=== PATIENT | male | born 1940 | race Caucasian/White ===

== ENCOUNTER 2018-12-05 13:05 | Inpatient (IN) | payer MEDICARE, MEDICAID ==
[~2018-12-05] VITALS: Ht 195.6 cm; Wt 101.6 kg
[~2018-12-05 13:05] MED LIST: ADV50100 IH; ALB0.5UD IH; AMIT-189 PO; AMOX-580 PO; APIX2.5T PO; ATE25T PO; CLIN300C11 PO; FURO-150 PO; FURO40TA4 PO; LISI-600 PO; OMEP-50 PO; POTA-82 PO; POTA10CA44 PO; SUCR1TAB34 PO
[2018-12-05 15:07] LABS: BASOPHILS % (AUTO) 0.6 % (0-1); EOSINOPHILS # (AUTO) 0.1 X10'3 (0-0.9); EOSINOPHILS % (AUTO) 0.9 % (0-6); HEMATOCRIT 34.5 % (42.0-52.0); HEMOGLOBIN 11.3 g/dl (14.0-17.9); LYMPHOCYTES # (AUTO) 1.1 X10'3 (1.1-4.8); LYMPHOCYTES % (AUTO) 18.7 % (21-51); MEAN CORPUSCULAR HEMOGLOBIN 30.8 PG (27.0-31.0); MEAN CORPUSCULAR HGB CONC 32.6 g/dL (33.0-36.5); MEAN CORPUSCULAR VOLUME 94.5 FL (78-98); MEAN PLATELET VOLUME 9.8 FL (7.4-10.4); MONOCYTES # (AUTO) 0.5 X10'3 (0-0.9); MONOCYTES % (AUTO) 8.3 % (2-12); NEUTROPHILS # (AUTO) 4.3 X10'3 (1.8-7.7); NEUTROPHILS % (AUTO) 71.5 % (42-75); PLATELET COUNT 209 X10'3 (140-440); RED BLOOD COUNT 3.65 X10'6 (4.70-6.10); RED CELL DISTRIBUTION WIDTH 16.2 % (11.5-14.5)
[2018-12-05 15:30] LABS: ALANINE AMINOTRANSFERASE 12 U/L (12-78); ALBUMIN 2.8 G/DL (3.4-5.0); ALBUMIN/GLOBULIN RATIO 0.7 (1.1-1.5); ALKALINE PHOSPHATASE 221 IU/L (46-116); ANION GAP 17 (8-16); ASPARTATE AMINO TRANSFERASE 21 U/L (10-37); BILIRUBIN,TOTAL 0.6 MG/DL (0.1-1.0); BLOOD UREA NITROGEN 48 MG/DL (7-18); BUN/CREATININE RATIO 12.6 (5.4-32.0); CALCIUM 9.3 MG/DL (8.5-10.1); CHLORIDE 109 MMOL/L (99-107); CREATININE 3.81 MG/DL (0.60-1.10); GLUCOSE 85 MG/DL (70-104); POTASSIUM 4.5 MMOL/L (3.5-5.1); SODIUM 144 MMOL/L (135-145); TOTAL CARBON DIOXIDE 17.7 MMOL/L (24-32); TOTAL PROTEIN 6.7 G/DL (6.4-8.2); eGFR 15 ML/MIN
[2018-12-05 15:49] LABS: CLARITY,URINE CLEAR (Clear); COLOR,URINE YELLOW (Yellow); GLUCOSE, URINE NEGATIVE (Neg); KETONES,URINE NEGATIVE (Neg); LEUKOCYTE ESTERASE ,URINE NEGATIVE (Neg); NITRITES, URINE NEGATIVE (Neg); OCCULT BLOOD,URINE MODERATE (Neg); PROTEIN,URINE NEGATIVE (Neg); UROBILINOGEN,URINE 0.2 E.U/dL (0.2-1.0)
[2018-12-05 15:50] LABS: UA COLLECTION TYPE STRAIGHT CATH
[2018-12-05 15:58] LABS: SQUAMOUS EPITHELIAL CELL,UR FEW /LPF (FEW); WBC,URINE 0-4 /HPF (0-4)
[2018-12-05 15:59] LABS: CAL OXALATE CRYSTALS FEW /HPF (NEGATIVE)
[2018-12-05 16:01] LABS: BACTERIA,URINE NONE SEEN /HPF (Neg)
[2018-12-05] MEDS ORDERED: ALBU18HF2 PO (16:39)
[2018-12-05] MEDS ORDERED: APIX5TAB3 PO (16:39)
[2018-12-05] MEDS ORDERED: NAPR220T67 PO (16:43)
[2018-12-05] MEDS ORDERED: magnesium 2GM in 50ml NS 50 ML IV PRN (17:00)
[2018-12-05] MEDS ORDERED: ondansetron/PF 4mg/2ml inj IV PRN (17:00)
[2018-12-05] MEDS ORDERED: magnesium 4gm in 100ml NS 100 ML IV PRN (17:00)
[2018-12-05] MEDS ORDERED: potassium Cl 20 mEq SR tablet PO PRN ×2 (17:00)
[2018-12-05] MEDS ORDERED: acetaminophen 325mg tablet PO PRN ×2 (17:00)
[2018-12-05] MEDS ORDERED: mag hydrox/Alum hydrox/simeth 30ml oral suspension PO PRN (17:00)
[2018-12-05] MEDS ORDERED: potassium CL 10mEq/100ml bag 100 ML IV PRN ×2 (17:00)
[2018-12-05] MEDS ORDERED: magnesium Cl slow-release 64mg tablet PO PRN (17:00)
[2018-12-05] MEDS ORDERED: magnesium hydroxide 30ml (MOM) UD suspension PO PRN (17:00)
[2018-12-05] MEDS ORDERED: normal saline 1000ML IV soln IVB ONE (17:15)
--- NOTE | 2018-12-05 17:35 | NUR ---
relieving RN for break, pt to CT
[2018-12-05 18:35] LABS: HEMOGLOBIN A1C 5.2 % (4.5-6.2)
[2018-12-05] MEDS: normal saline 1000ml 1,000 ML IV SCH (18:48)
--- NOTE | 2018-12-05 19:00 | NUR ---
ASSUMED CARE OF PT RESTING ON HIS BACK NO C/O OF DISCOMFORT . PT STATES THAT HE DOES HAVE SOME CONSTIPATION STATES HE HAS BEEN CHECKING HIS STOOL FOR BLOOD AND HAS NOT SEEN ANY, BUT DOES STRAIN TO STOOL .REPORTS HE HASNT SEEN DR Sheffield FOR 8 MONTHS MISSED HIS NOV APPT THIS YEAR. ALSO REPORTS TO HOSPITALIST THAT HE HAS DECIDED NOT TO RENEW HIS DRIVERS LICENSE WITH HIS DOUBLE VISION THAT HAS SINCE RESOLVED. PT STATES THAT THE DOUBLE VISION INDEPENDENTLY RESOLVED
--- NOTE | 2018-12-05 19:27 | NUR ---
MD Walsh CALLED FOR SIDDIQUI CATH ORDER . UPDATED POC ABOUT THE NEED TO HAVE A SIDDIQUI CATH TO HELP THE HYDRONEPHOROUS SEEN IN HIS CT
[2018-12-05] MEDS ORDERED: heparin, porcine 5000 units/ml vial SQ SCH (20:00)
[2018-12-05] MEDS: apixaban 5mg tablet PO SCH (20:21)
[2018-12-05] MEDS ORDERED: temazepam 15mg capsule PO PRN (21:00)
[2018-12-05 21:10] VITALS: BP 148/94
--- NOTE | 2018-12-05 21:10 | NUR ---
Received patient report from LUCI Nowak in ED. Patient was admitted for Acute Renal Failure (AKF) and azotemia. Pt is Full Code, RA, diet is Renal and he had a Otero in place. Pt is receiving NS at 120ml/hour for hydration. His BUN is 48 and his CR is 3.81. Per DR. Lim's notes a wrecking car driver has been consulted. Upon arrival patient VS were as follow: BP: 148/94; HR: 102; SPO2: 96; Temp: 97.1 Patient is alert and oriented X4, denies CP, dizziness, n/v, rated pain 4/10. His last bowel movement was 12/04/18. The 2RN skin was done, the malnutrition assessment, and admission assessment. Pt states that he is fatigued and would like to answer the rest of the admission questionnaires tomorrow.
[2018-12-05 22:00] VITALS: BP 150/82
[2018-12-06] MEDS: normal saline 1000ml 1,000 ML IV SCH ×4 (01:18→22:25)
[2018-12-06 02:00] VITALS: BP 122/72
[2018-12-06 05:40] LABS: BASOPHILS % (AUTO) 0.6 % (0-1); EOSINOPHILS # (AUTO) 0.1 X10'3 (0-0.9); EOSINOPHILS % (AUTO) 2.7 % (0-6); HEMATOCRIT 32.2 % (42.0-52.0); HEMOGLOBIN 10.5 g/dl (14.0-17.9); LYMPHOCYTES # (AUTO) 0.9 X10'3 (1.1-4.8); LYMPHOCYTES % (AUTO) 16.7 % (21-51); MEAN CORPUSCULAR HEMOGLOBIN 31.2 PG (27.0-31.0); MEAN CORPUSCULAR HGB CONC 32.5 g/dL (33.0-36.5); MONOCYTES # (AUTO) 0.5 X10'3 (0-0.9); MONOCYTES % (AUTO) 8.9 % (2-12); NEUTROPHILS # (AUTO) 3.8 X10'3 (1.8-7.7); NEUTROPHILS % (AUTO) 71.1 % (42-75); PLATELET COUNT 166 X10'3 (140-440); RED BLOOD COUNT 3.36 X10'6 (4.70-6.10); WHITE BLOOD COUNT 5.4 X10'3 (4.5-11.0)
[2018-12-06 06:00] VITALS: BP 128/72
--- NOTE | 2018-12-06 06:00 | NUR ---
Patient in room PCU 3019. I have received report from Blair VERMA and had the opportunity to ask questions and assume patient care.
[2018-12-06 06:02] LABS: ALANINE AMINOTRANSFERASE 11 U/L (12-78); ALBUMIN 2.3 G/DL (3.4-5.0); ALBUMIN/GLOBULIN RATIO 0.7 (1.1-1.5); ALKALINE PHOSPHATASE 190 IU/L (46-116); ANION GAP 13 (8-16); ASPARTATE AMINO TRANSFERASE 16 U/L (10-37); BILIRUBIN,TOTAL 0.4 MG/DL (0.1-1.0); BLOOD UREA NITROGEN 43 MG/DL (7-18); CALCIUM 8.9 MG/DL (8.5-10.1); CHLORIDE 112 MMOL/L (99-107); CHOL/HDL RATIO 3.5 (0.00-4.99); CHOLESTEROL 124 MG/DL (0-200); CREATININE 3.58 MG/DL (0.60-1.10); GLUCOSE 106 MG/DL (70-104); HDL CHOLESTEROL 35 MG/DL (35-60); LDL CHOLESTEROL 79 MG/DL (50-100); PHOSPHORUS 3.5 MG/DL (2.3-4.5); POTASSIUM 4.1 MMOL/L (3.5-5.1); SODIUM 144 MMOL/L (135-145); TOTAL CARBON DIOXIDE 19.5 MMOL/L (24-32); TOTAL PROTEIN 5.7 G/DL (6.4-8.2); TRIGLYCERIDES 54 MG/DL (20-135); eGFR 17 ML/MIN
--- NOTE | 2018-12-06 06:29 | NUR ---
Problems reprioritized. Patient report given, questions answered & plan of care reviewed with LUCI Ruiz. Pt stable at shift change
[2018-12-06] MEDS: K and/or MAG REPLACEMENT MC SCH (08:00)
[2018-12-06] MEDS: apixaban 5mg tablet PO SCH ×2 (09:26→19:43)
[2018-12-06 11:00] VITALS: BP 138/77
[2018-12-06 15:00] VITALS: BP 138/83
--- NOTE | 2018-12-06 15:53 | NUR ---
Malnutrition Consults: Pt admit w/ acute renal failure hx colon and prostate CA previously had received chemo/radiation. Pt seen by STUART and reports UBW 2-3 months ago 270-280 pounds, reports ~13 pound loss on malnutrition screen, and also reports 262 pounds last doctor admit in addition to current wt 207 pounds is pt stated. Both pt prior wts and states wts fluctuate w/ no accurate hx. Physical assessment currently pending as well. Pt has no visible signs of muscle/fat wasting and PO 50% avg first meals this admit. RD helped pt fill out menu and pt requests vanilla milkshake once daily which is OK on renal diet given current PO and only 125mg Phos/222mg K per shake. Dietary notified. At this time pt lacks minimum criteria for malnutrition. Will continue to monitor for additional criteria this admit. Addendum: 12/06/18 at [address] Amended: Links added.
[2018-12-06 18:00] VITALS: BP 140/87
--- NOTE | 2018-12-06 18:25 | NUR ---
Patient in room PCU 3019. I have received report from LUCI Arzate and had the opportunity to ask questions and assume patient care. Pt is resting with no sign of distress. Will continue to monitor
--- NOTE | 2018-12-06 18:35 | NUR ---
Problems reprioritized. Patient report given, questions answered & plan of care reviewed with Blair VERMA.
[2018-12-06 18:40] LABS: TOTAL PROTEIN,URINE RANDOM 109.4 MG/DL
[2018-12-06 18:59] LABS: UA EOSINOPHILS RARE EOS /HPF
[2018-12-06 22:00] VITALS: BP 125/81
[2018-12-07 02:00] VITALS: BP 136/87
[2018-12-07 06:00] VITALS: BP 134/89
[2018-12-07 06:18] LABS: BASOPHILS % (AUTO) 0.4 % (0-1); EOSINOPHILS # (AUTO) 0.2 X10'3 (0-0.9); EOSINOPHILS % (AUTO) 2.8 % (0-6); HEMATOCRIT 30.1 % (42.0-52.0); LYMPHOCYTES # (AUTO) 1.2 X10'3 (1.1-4.8); LYMPHOCYTES % (AUTO) 19.6 % (21-51); MEAN CORPUSCULAR HEMOGLOBIN 31.5 PG (27.0-31.0); MEAN CORPUSCULAR HGB CONC 33.1 g/dL (33.0-36.5); MEAN PLATELET VOLUME 9.1 FL (7.4-10.4); MONOCYTES # (AUTO) 0.6 X10'3 (0-0.9); MONOCYTES % (AUTO) 10.6 % (2-12); NEUTROPHILS # (AUTO) 3.9 X10'3 (1.8-7.7); NEUTROPHILS % (AUTO) 66.6 % (42-75); PLATELET COUNT 180 X10'3 (140-440); RED BLOOD COUNT 3.17 X10'6 (4.70-6.10); RED CELL DISTRIBUTION WIDTH 16.5 % (11.5-14.5); WHITE BLOOD COUNT 5.9 X10'3 (4.5-11.0)
--- NOTE | 2018-12-07 06:20 | NUR ---
Patient in room PCU 3019. I have received report from Blair VERMA and had the opportunity to ask questions and assume patient care.
--- NOTE | 2018-12-07 06:28 | NUR ---
Problems reprioritized. Patient report given, questions answered & plan of care reviewed with LUCI Arzate. Pt stable at shift change
[2018-12-07 06:46] LABS: ALANINE AMINOTRANSFERASE 8 U/L (12-78); ALBUMIN 2.1 G/DL (3.4-5.0); ALBUMIN/GLOBULIN RATIO 0.6 (1.1-1.5); ALKALINE PHOSPHATASE 182 IU/L (46-116); ANION GAP 10 (8-16); ASPARTATE AMINO TRANSFERASE 13 U/L (10-37); BILIRUBIN,TOTAL 0.3 MG/DL (0.1-1.0); BLOOD UREA NITROGEN 42 MG/DL (7-18); BUN/CREATININE RATIO 13.1 (5.4-32.0); CALCIUM 9.2 MG/DL (8.5-10.1); CHLORIDE 113 MMOL/L (99-107); GLUCOSE 97 MG/DL (70-104); MAGNESIUM 1.9 MG/DL (1.5-2.4); PHOSPHORUS 3.1 MG/DL (2.3-4.5); POTASSIUM 3.9 MMOL/L (3.5-5.1); SODIUM 143 MMOL/L (135-145); TOTAL CARBON DIOXIDE 19.9 MMOL/L (24-32); TOTAL PROTEIN 5.4 G/DL (6.4-8.2); eGFR 19 ML/MIN
[2018-12-07] MEDS: apixaban 5mg tablet PO SCH (07:17)
[2018-12-07] MEDS: K and/or MAG REPLACEMENT MC SCH (07:25)
[2018-12-07] MEDS: normal saline 1000ml 1,000 ML IV SCH ×3 (07:26→21:47)
[2018-12-07 11:00] VITALS: BP 143/101
--- NOTE | 2018-12-07 12:22 | NUR ---
PAGER ID: [phone] MESSAGE: [phone], Edwige Carrillo patient ran 4 beat V-Tach. [facility] [phone]
[2018-12-07 13:10] LABS: CANCER ANTIGEN 125 22.8 U/mL (Not Estab.); CARCINOEMBRYONIC ANTIGEN 1.6 ng/mL (0.0-4.7)
[2018-12-07 15:00] VITALS: BP 148/90
[2018-12-07] MEDS ORDERED: HYDROcodone/acetaminophen 10/325mg tab PO PRN (15:05)
[2018-12-07 15:08] LABS: % FREE PSA >19.9 % (.); PSA, FREE >50.00 ng/mL
[2018-12-07] MEDS: HYDROcodone/acetaminophen 10/325mg tab PO PRN (16:14)
[2018-12-07 18:00] VITALS: BP 158/85
--- NOTE | 2018-12-07 18:00 | NUR ---
Problems reprioritized. Patient report given, questions answered & plan of care reviewed with Blair VERMA.
--- NOTE | 2018-12-07 18:30 | NUR ---
Patient in room PCU 3019. I have received report from LUCI Avilez and had the opportunity to ask questions and assume patient care. Patient is having dinner right now. He is alert and oriented x 4, denies CP, SOB, n/v, and rated pain 0/10. Will continue to monitor
[2018-12-07] MEDS ORDERED: gadobutrol 10mmol/10ml inj. IV ONE (20:01)
[2018-12-07 22:00] VITALS: BP 117/81
[2018-12-08 02:00] VITALS: BP 142/93
[2018-12-08 06:00] VITALS: BP 145/87
--- NOTE | 2018-12-08 06:00 | NUR ---
Patient in room PCU 3019. I have received report from Blair VERMA and had the opportunity to ask questions and assume patient care.
--- NOTE | 2018-12-08 06:07 | NUR ---
Problems reprioritized. Patient report given, questions answered & plan of care reviewed with Raghav. Pt stable at shift change.
[2018-12-08 06:16] LABS: BASOPHILS % (AUTO) 0.4 % (0-1); EOSINOPHILS # (AUTO) 0.2 X10'3 (0-0.9); EOSINOPHILS % (AUTO) 3.1 % (0-6); HEMATOCRIT 31.4 % (42.0-52.0); HEMOGLOBIN 10.3 g/dl (14.0-17.9); LYMPHOCYTES # (AUTO) 1.2 X10'3 (1.1-4.8); LYMPHOCYTES % (AUTO) 22.9 % (21-51); MEAN CORPUSCULAR HEMOGLOBIN 31.5 PG (27.0-31.0); MEAN CORPUSCULAR HGB CONC 32.9 g/dL (33.0-36.5); MEAN CORPUSCULAR VOLUME 95.9 FL (78-98); MEAN PLATELET VOLUME 9.4 FL (7.4-10.4); MONOCYTES # (AUTO) 0.6 X10'3 (0-0.9); MONOCYTES % (AUTO) 10.4 % (2-12); NEUTROPHILS # (AUTO) 3.4 X10'3 (1.8-7.7); NEUTROPHILS % (AUTO) 63.2 % (42-75); PLATELET COUNT 173 X10'3 (140-440); RED BLOOD COUNT 3.27 X10'6 (4.70-6.10); RED CELL DISTRIBUTION WIDTH 16.8 % (11.5-14.5); WHITE BLOOD COUNT 5.5 X10'3 (4.5-11.0)
[2018-12-08 06:47] LABS: ALANINE AMINOTRANSFERASE 9 U/L (12-78); ALBUMIN 2.1 G/DL (3.4-5.0); ALBUMIN/GLOBULIN RATIO 0.6 (1.1-1.5); ALKALINE PHOSPHATASE 183 IU/L (46-116); ANION GAP 10 (8-16); ASPARTATE AMINO TRANSFERASE 10 U/L (10-37); BILIRUBIN,TOTAL 0.3 MG/DL (0.1-1.0); BLOOD UREA NITROGEN 34 MG/DL (7-18); BUN/CREATININE RATIO 10.5 (5.4-32.0); CALCIUM 8.2 MG/DL (8.5-10.1); CHLORIDE 113 MMOL/L (99-107); CREATININE 3.23 MG/DL (0.60-1.10); GLUCOSE 81 MG/DL (70-104); MAGNESIUM 1.6 MG/DL (1.5-2.4); PHOSPHORUS 3.4 MG/DL (2.3-4.5); SODIUM 142 MMOL/L (135-145); TOTAL CARBON DIOXIDE 18.6 MMOL/L (24-32); TOTAL PROTEIN 5.5 G/DL (6.4-8.2); eGFR 19 ML/MIN
[2018-12-08] MEDS: normal saline 1000ml 1,000 ML IV SCH (07:16)
[2018-12-08] MEDS: K and/or MAG REPLACEMENT MC SCH (07:16)
[2018-12-08 11:00] VITALS: BP 144/84
[2018-12-08 12:03] LABS: PARTIAL THROMBOPLASTIN TIME 47 SECONDS (22-32)
--- NOTE | 2018-12-08 13:02 | NUR ---
Nutrition consult: RD already assessed for malnutrition which pt did not qualify for, see below. PO intake has improved now averaging 75-100% likely meeting nutrient needs. Will continue to follow. 12/06- Malnutrition Consults: Pt admit w/ acute renal failure hx colon and prostate CA previously had received chemo/radiation. Pt seen by RD and reports UBW 2-3 months ago 270-280 pounds, reports ~13 pound loss on malnutrition screen, and also reports 262 pounds last doctor admit in addition to current wt 207 pounds is pt stated. Both pt prior wts and states wts fluctuate w/ no accurate hx. Physical assessment currently pending as well. Pt has no visible signs of muscle/fat wasting and PO 50% avg first meals this admit. RD helped pt fill out menu and pt requests vanilla milkshake once daily which is OK on renal diet given current PO and only 125mg Phos/222mg K per shake. Dietary notified. At this time pt lacks minimum criteria for malnutrition. Will continue to monitor for additional criteria this admit. Addendum: 12/08/18 at [address] Amended: Links added.
[2018-12-08] MEDS: HYDROcodone/acetaminophen 10/325mg tab PO PRN (14:04)
[2018-12-08 15:00] VITALS: BP 140/82
[2018-12-08 18:00] VITALS: BP 116/98
--- NOTE | 2018-12-08 18:34 | NUR ---
Patient in room PCU 3019. I have received report from LUCI Ruiz and had the opportunity to ask questions and assume patient care. Pt denies CP, SOB, dizziness, n/v. Pt's pain medication was changed from [place] to percocet. Will continue to monitor
[2018-12-08] MEDS: megestrol acetate 400mg/10ml UD oral suspension PO SCH (20:47)
[2018-12-08] MEDS: oxyCODONE/APAP 10/325mg tablet PO PRN (20:48)
[2018-12-08 22:00] VITALS: BP 142/79
[2018-12-09] MEDS: normal saline 1000ml 1,000 ML IV SCH (01:28)
[2018-12-09 06:00] VITALS: BP 144/91
--- NOTE | 2018-12-09 06:31 | NUR ---
Problems reprioritized. Patient report given, questions answered & plan of care reviewed with LUCI Domínguez. Pt stable at shift change Addendum: 12/09/18 at 0632 by Blair Servin RN Report given to LUCI Peña
[2018-12-09 06:33] LABS: BASOPHILS % (AUTO) 0.3 % (0-1); EOSINOPHILS # (AUTO) 0.2 X10'3 (0-0.9); EOSINOPHILS % (AUTO) 3.5 % (0-6); HEMATOCRIT 33.8 % (42.0-52.0); LYMPHOCYTES # (AUTO) 0.4 X10'3 (1.1-4.8); MEAN CORPUSCULAR HEMOGLOBIN 31.2 PG (27.0-31.0); MEAN CORPUSCULAR HGB CONC 32.6 g/dL (33.0-36.5); MEAN CORPUSCULAR VOLUME 95.6 FL (78-98); MEAN PLATELET VOLUME 9.1 FL (7.4-10.4); MONOCYTES # (AUTO) 0.2 X10'3 (0-0.9); MONOCYTES % (AUTO) 3.6 % (2-12); NEUTROPHILS # (AUTO) 4.4 X10'3 (1.8-7.7); NEUTROPHILS % (AUTO) 84.6 % (42-75); PLATELET COUNT 193 X10'3 (140-440); RED BLOOD COUNT 3.53 X10'6 (4.70-6.10); RED CELL DISTRIBUTION WIDTH 16.5 % (11.5-14.5); WHITE BLOOD COUNT 5.2 X10'3 (4.5-11.0)
--- NOTE | 2018-12-09 06:47 | NUR ---
Patient in room PCU 3019. I have received report from LUCI Pinto and had the opportunity to ask questions and assume patient care. Pt is awake and alert. Will continue to monitor.
[2018-12-09 06:53] LABS: ALANINE AMINOTRANSFERASE 11 U/L (12-78); ALBUMIN 2.1 G/DL (3.4-5.0); ALBUMIN/GLOBULIN RATIO 0.6 (1.1-1.5); ALKALINE PHOSPHATASE 201 IU/L (46-116); ANION GAP 11 (8-16); ASPARTATE AMINO TRANSFERASE 8 U/L (10-37); BILIRUBIN,TOTAL 0.3 MG/DL (0.1-1.0); BLOOD UREA NITROGEN 33 MG/DL (7-18); BUN/CREATININE RATIO 10.6 (5.4-32.0); CALCIUM 8.3 MG/DL (8.5-10.1); CHLORIDE 112 MMOL/L (99-107); GLUCOSE 99 MG/DL (70-104); MAGNESIUM 1.5 MG/DL (1.5-2.4); PHOSPHORUS 3.3 MG/DL (2.3-4.5); POTASSIUM 4.3 MMOL/L (3.5-5.1); SODIUM 142 MMOL/L (135-145); TOTAL CARBON DIOXIDE 19.2 MMOL/L (24-32); TOTAL PROTEIN 5.8 G/DL (6.4-8.2); eGFR 20 ML/MIN
[2018-12-09] MEDS: K and/or MAG REPLACEMENT MC SCH (07:48)
[2018-12-09] MEDS: megestrol acetate 400mg/10ml UD oral suspension PO SCH ×2 (07:48→21:02)
[2018-12-09 11:00] VITALS: BP 151/95
--- NOTE | 2018-12-09 13:00 | NUR ---
Initial: Pt admit w/ acute renal failure and recurrent prostate CA w/ mets to pelvis, lumbar, cranium, bladder, and R femoral head DX per MD note. PO 75-100% meals meeting needs on megace. LBM 12/07. Advanced to regular diet and OK to have beer at night if requests per MD order. No nutrition concerns at this time. Will continue to monitor. Rec: 1. continue regular diet per MD 2. monitor for ONS needs 3. wt per rx Addendum: 12/09/18 at [address] Amended: Links added.
[2018-12-09] MEDS: albuterol 2.5 MG/3 ML nebule NEB PRN (14:13)
[2018-12-09 15:00] VITALS: BP 141/90
--- NOTE | 2018-12-09 18:10 | NUR ---
Patient in room PCU 3019. I have received report from LUCI Peña and had the opportunity to ask questions and assume patient care.
--- NOTE | 2018-12-09 18:48 | NUR ---
Problems reprioritized. Patient report given, questions answered & plan of care reviewed with LUCI Palacios.
[2018-12-09 19:00] VITALS: BP 165/106
[2018-12-09 23:00] VITALS: BP 142/92
[2018-12-10] VITALS (9 sets, daily range): BP systolic 116–154; BP diastolic 77–105
[2018-12-10 05:56] LABS: ALANINE AMINOTRANSFERASE 10 U/L (12-78); ALBUMIN 1.9 G/DL (3.4-5.0); ALBUMIN/GLOBULIN RATIO 0.5 (1.1-1.5); ALKALINE PHOSPHATASE 187 IU/L (46-116); ANION GAP 11 (8-16); ASPARTATE AMINO TRANSFERASE 11 U/L (10-37); BILIRUBIN,TOTAL 0.4 MG/DL (0.1-1.0); BLOOD UREA NITROGEN 36 MG/DL (7-18); BUN/CREATININE RATIO 11.5 (5.4-32.0); CALCIUM 8.6 MG/DL (8.5-10.1); CHLORIDE 111 MMOL/L (99-107); CREATININE 3.13 MG/DL (0.60-1.10); GLUCOSE 91 MG/DL (70-104); MAGNESIUM 1.6 MG/DL (1.5-2.4); PHOSPHORUS 3.1 MG/DL (2.3-4.5); SODIUM 140 MMOL/L (135-145); TOTAL CARBON DIOXIDE 17.7 MMOL/L (24-32); TOTAL PROTEIN 5.5 G/DL (6.4-8.2); eGFR 19 ML/MIN
[2018-12-10 06:06] LABS: BASOPHILS % (AUTO) 0.4 % (0-1); EOSINOPHILS # (AUTO) 0.1 X10'3 (0-0.9); EOSINOPHILS % (AUTO) 2.2 % (0-6); HEMATOCRIT 30.4 % (42.0-52.0); HEMOGLOBIN 10.1 g/dl (14.0-17.9); LYMPHOCYTES # (AUTO) 0.7 X10'3 (1.1-4.8); MEAN CORPUSCULAR HEMOGLOBIN 31.2 PG (27.0-31.0); MEAN CORPUSCULAR HGB CONC 33.2 g/dL (33.0-36.5); MEAN PLATELET VOLUME 8.8 FL (7.4-10.4); MONOCYTES # (AUTO) 0.4 X10'3 (0-0.9); MONOCYTES % (AUTO) 7.2 % (2-12); NEUTROPHILS % (AUTO) 77.2 % (42-75); PLATELET COUNT 183 X10'3 (140-440); RED BLOOD COUNT 3.23 X10'6 (4.70-6.10); WHITE BLOOD COUNT 5.2 X10'3 (4.5-11.0)
--- NOTE | 2018-12-10 06:07 | NUR ---
Problems reprioritized. Patient report given, questions answered & plan of care reviewed with LUCI Peña.
--- NOTE | 2018-12-10 06:30 | NUR ---
Patient in room PCU 3019. I have received report from LUCI Palacios and had the opportunity to ask questions and assume patient care. Pt sleeping. Will continue to monitor.
[2018-12-10] MEDS: K and/or MAG REPLACEMENT MC SCH (07:54)
[2018-12-10] MEDS: normal saline 1000ml 1,000 ML IV SCH (07:54)
[2018-12-10] MEDS: megestrol acetate 400mg/10ml UD oral suspension PO SCH ×2 (07:54→19:29)
[2018-12-10] MEDS ORDERED: LIDOcaine 1%/PF 5ML 10 MG/ML VIAL SQ ONE (11:30)
[2018-12-10] MEDS ORDERED: fentaNYL/PF 50MCG/1 ML 2ML syringe IV PRN (11:30)
[2018-12-10] MEDS ORDERED: ceFAZolin 2gm in dextrose, iso 100 ML IV ONE (11:30)
[2018-12-10] MEDS ORDERED: LIDOcaine 1%/PF 5ML 10 MG/ML VIAL ONE (11:42)
[2018-12-10] MEDS ORDERED: iohexol 300 MG/1 ML 50ml polymer ONE (11:42)
[2018-12-10] MEDS ORDERED: fentaNYL/PF 50MCG/1 ML 2ML syringe ONE ×2 (11:55→12:28)
[2018-12-10] MEDS ORDERED: cefazolin/dext.iso 2gm/50ml 50 ML IV ONE (11:57)
[2018-12-10] MEDS ORDERED: diphenhydrAMINE 50 mg/ml inj ONE (11:58)
--- NOTE | 2018-12-10 18:32 | NUR ---
Problems reprioritized. Patient report given, questions answered & plan of care reviewed with LUCI Palacios.
--- NOTE | 2018-12-10 18:33 | NUR ---
Patient in room PCU 3019. I have received report from LUCI Peña and had the opportunity to ask questions and assume patient care.
[2018-12-11] VITALS (7 sets, daily range): BP systolic 114–146; BP diastolic 84–100
[2018-12-11] MEDS: normal saline 1000ml 1,000 ML IV SCH ×2 (04:15→23:28)
--- NOTE | 2018-12-11 05:34 | NUR ---
Performed bladder scan on patient due to zero urine output. He has 49 ml in his bladder. Will pass this to dayshift.
--- NOTE | 2018-12-11 06:21 | NUR ---
Problems reprioritized. Patient report given, questions answered & plan of care reviewed with LUCI Peña.
[2018-12-11] MEDS: megestrol acetate 400mg/10ml UD oral suspension PO SCH ×2 (07:13→21:45)
[2018-12-11] MEDS: K and/or MAG REPLACEMENT MC SCH (08:00)
--- NOTE | 2018-12-11 08:00 | NUR ---
Pt does not want to get up for standing scale. Bed scale is not working.
[2018-12-11] MEDS: albuterol 2.5 MG/3 ML nebule NEB PRN (12:09)
--- NOTE | 2018-12-11 12:40 | NUR ---
Sent to Dr Dumont PAGER ID: [phone] MESSAGE: RE: Kendall Carrillo [phone]. RT recommends flutter valve. Needs order. -Mariana [phone]
--- NOTE | 2018-12-11 14:08 | NUR ---
Sent to Dr Dumont PAGER ID: [phone] MESSAGE: RE: Kendall Carrillo [phone]. Pt sustaining HR of ~120's-130's for 15 minutes. Please advise. -Mariana [phone]
--- NOTE | 2018-12-11 14:22 | NUR ---
Sent to Dr Dumont PAGER ID: [phone] MESSAGE: RE: Kendall Carrillo [phone]. Upon placing order, conflict arose: pt allergic to amlodipine which is a Ca channel magdalena as well as Cardizem. Please advise. -Mariana [phone]
--- NOTE | 2018-12-11 15:19 | NUR ---
Sent to Dr Dumont PAGER ID: [phone] MESSAGE: RE: Kendall Carrillo [phone]. Pt BP down to low 100's. Still not on Cardizem drip due to amlodipine allergy. -Mariana [phone]
[2018-12-11] MEDS: oxyCODONE/APAP 10/325mg tablet PO PRN (16:16)
--- NOTE | 2018-12-11 16:20 | NUR ---
Sent to Dr Dumont PAGER ID: [phone] MESSAGE: RE: Kendall Carrillo [phone]. FYI: all labs have been cancelled or completed. - Mariana [phone]
--- NOTE | 2018-12-11 18:20 | NUR ---
Patient in room PCU 3019. I have received report from LUCI Peña and had the opportunity to ask questions and assume patient care.
--- NOTE | 2018-12-11 18:39 | NUR ---
Problems reprioritized. Patient report given, questions answered & plan of care reviewed with LUCI Palacios.
[2018-12-11] MEDS: carvedilol 6.25mg tablet PO SCH (21:47)
[2018-12-12 03:00] VITALS: BP 156/99
[2018-12-12 04:09] VITALS: BP 123/84
--- NOTE | 2018-12-12 04:55 | NUR ---
Patient's output from right nephrostomy tube drainage has become less pink, more clear yellow in color. Left nephrostomy tube drainage is still quite pink/red.
[2018-12-12 06:00] VITALS: BP 124/80
[2018-12-12 06:12] LABS: BASOPHILS % (AUTO) 0.3 % (0-1); EOSINOPHILS # (AUTO) 0.2 X10'3 (0-0.9); EOSINOPHILS % (AUTO) 3.4 % (0-6); HEMATOCRIT 29.6 % (42.0-52.0); HEMOGLOBIN 9.8 g/dl (14.0-17.9); LYMPHOCYTES # (AUTO) 0.9 X10'3 (1.1-4.8); LYMPHOCYTES % (AUTO) 18.3 % (21-51); MEAN CORPUSCULAR HEMOGLOBIN 31.1 PG (27.0-31.0); MEAN CORPUSCULAR HGB CONC 33.1 g/dL (33.0-36.5); MEAN CORPUSCULAR VOLUME 94.2 FL (78-98); MEAN PLATELET VOLUME 8.6 FL (7.4-10.4); MONOCYTES # (AUTO) 0.6 X10'3 (0-0.9); MONOCYTES % (AUTO) 10.9 % (2-12); NEUTROPHILS # (AUTO) 3.5 X10'3 (1.8-7.7); NEUTROPHILS % (AUTO) 67.1 % (42-75); PLATELET COUNT 187 X10'3 (140-440); RED BLOOD COUNT 3.14 X10'6 (4.70-6.10); RED CELL DISTRIBUTION WIDTH 16.4 % (11.5-14.5); WHITE BLOOD COUNT 5.2 X10'3 (4.5-11.0)
[2018-12-12 06:22] LABS: ALBUMIN 1.7 G/DL (3.4-5.0); ALBUMIN/GLOBULIN RATIO 0.5 (1.1-1.5); ALKALINE PHOSPHATASE 159 IU/L (46-116); ANION GAP 10 (8-16); ASPARTATE AMINO TRANSFERASE 7 U/L (10-37); BILIRUBIN,TOTAL 0.2 MG/DL (0.1-1.0); BLOOD UREA NITROGEN 41 MG/DL (7-18); BUN/CREATININE RATIO 13.2 (5.4-32.0); CALCIUM 8.5 MG/DL (8.5-10.1); CHLORIDE 114 MMOL/L (99-107); GLUCOSE 107 MG/DL (70-104); MAGNESIUM 1.6 MG/DL (1.5-2.4); PHOSPHORUS 3.5 MG/DL (2.3-4.5); POTASSIUM 4.6 MMOL/L (3.5-5.1); SODIUM 142 MMOL/L (135-145); TOTAL CARBON DIOXIDE 17.9 MMOL/L (24-32); TOTAL PROTEIN 5.1 G/DL (6.4-8.2); eGFR 20 ML/MIN
--- NOTE | 2018-12-12 06:22 | NUR ---
Problems reprioritized. Patient report given, questions answered & plan of care reviewed with LUCI Avendano .
--- NOTE | 2018-12-12 06:22 | NUR ---
Patient in room PCU 3019. I have received report from LUCI Palacios and had the opportunity to ask questions and assume patient care.
[2018-12-12 06:26] LABS: ALANINE AMINOTRANSFERASE < 6 U/L (12-78)
[2018-12-12] MEDS: K and/or MAG REPLACEMENT MC SCH (08:00)
[2018-12-12] MEDS: megestrol acetate 400mg/10ml UD oral suspension PO SCH ×2 (08:17→20:15)
[2018-12-12] MEDS: carvedilol 6.25mg tablet PO SCH ×2 (08:18→20:15)
[2018-12-12 11:00] VITALS: BP 125/78
[2018-12-12 15:00] VITALS: BP 116/86
[2018-12-12] MEDS: normal saline 1000ml 1,000 ML IV SCH (15:05)
--- NOTE | 2018-12-12 18:05 | NUR ---
Problems reprioritized. Patient report given, questions answered & plan of care reviewed with LUCI Remy.
--- NOTE | 2018-12-12 18:35 | NUR ---
Patient in room PCU 3019. I have received report from Romana VERMA and had the opportunity to ask questions and assume patient care.
[2018-12-12 22:00] VITALS: BP 125/75
[2018-12-13 02:00] VITALS: BP 120/84
[2018-12-13 05:46] LABS: BASOPHILS % (AUTO) 0.5 % (0-1); EOSINOPHILS # (AUTO) 0.2 X10'3 (0-0.9); EOSINOPHILS % (AUTO) 3.1 % (0-6); HEMOGLOBIN 10.5 g/dl (14.0-17.9); LYMPHOCYTES # (AUTO) 1.1 X10'3 (1.1-4.8); LYMPHOCYTES % (AUTO) 18.1 % (21-51); MEAN CORPUSCULAR HEMOGLOBIN 30.9 PG (27.0-31.0); MEAN CORPUSCULAR HGB CONC 32.9 g/dL (33.0-36.5); MEAN CORPUSCULAR VOLUME 93.8 FL (78-98); MEAN PLATELET VOLUME 8.3 FL (7.4-10.4); MONOCYTES # (AUTO) 0.7 X10'3 (0-0.9); NEUTROPHILS % (AUTO) 67.3 % (42-75); PLATELET COUNT 236 X10'3 (140-440); RED BLOOD COUNT 3.42 X10'6 (4.70-6.10); RED CELL DISTRIBUTION WIDTH 16.4 % (11.5-14.5)
[2018-12-13 06:00] VITALS: BP 126/76
--- NOTE | 2018-12-13 06:00 | NUR ---
Patient in room PCU 3019. I have received report from Wyatt RN and had the opportunity to ask questions and assume patient care.
[2018-12-13 06:09] LABS: ALANINE AMINOTRANSFERASE 8 U/L (12-78); ALBUMIN 1.8 G/DL (3.4-5.0); ALBUMIN/GLOBULIN RATIO 0.5 (1.1-1.5); ALKALINE PHOSPHATASE 151 IU/L (46-116); ANION GAP 10 (8-16); ASPARTATE AMINO TRANSFERASE 10 U/L (10-37); BILIRUBIN,TOTAL 0.2 MG/DL (0.1-1.0); BLOOD UREA NITROGEN 40 MG/DL (7-18); BUN/CREATININE RATIO 13.2 (5.4-32.0); CALCIUM 8.8 MG/DL (8.5-10.1); CHLORIDE 113 MMOL/L (99-107); CREATININE 3.04 MG/DL (0.60-1.10); GLUCOSE 88 MG/DL (70-104); PHOSPHORUS 3.2 MG/DL (2.3-4.5); POTASSIUM 4.4 MMOL/L (3.5-5.1); SODIUM 142 MMOL/L (135-145); TOTAL CARBON DIOXIDE 18.6 MMOL/L (24-32); TOTAL PROTEIN 5.3 G/DL (6.4-8.2); eGFR 20 ML/MIN
--- NOTE | 2018-12-13 06:13 | NUR ---
Problems reprioritized. Patient report given, questions answered & plan of care reviewed with Arlene Stafford RN.
[2018-12-13] MEDS: K and/or MAG REPLACEMENT MC SCH (08:00)
[2018-12-13] MEDS: megestrol acetate 400mg/10ml UD oral suspension PO SCH ×2 (08:45→21:25)
[2018-12-13] MEDS: carvedilol 6.25mg tablet PO SCH ×2 (08:47→21:25)
[2018-12-13 11:00] VITALS: BP 121/63
[2018-12-13] MEDS: normal saline 1000ml 1,000 ML IV SCH (12:13)
--- NOTE | 2018-12-13 13:34 | NUR ---
reassessment: Pt PO 75% avg meals; slightly less at breakfast today per RN r/t SOB. LBM 12/07. STUART evocatal.[employer] for routine bowel care since no BM 6 days likely effecting SOB and PO meals. Continues on regular diet allowed one beer at night per MD order. Will continue to monitor. Rec: 1. continue regular diet per MD 2. routine bowel care 3. wt per rx Addendum: 12/13/18 at [address] Amended: Links added.
[2018-12-13] MEDS ORDERED: bisacodyl 10mg suppository rectal RC STA (14:05)
[2018-12-13] MEDS ORDERED: bisacodyl 10mg suppository rectal RC PRN (14:05)
[2018-12-13] MEDS ORDERED: docusate sod 100mg capsule PO ONE (14:05)
[2018-12-13 17:32] VITALS: BP 138/85
[2018-12-13 18:00] VITALS: BP 146/96
--- NOTE | 2018-12-13 18:30 | NUR ---
Patient in room PCU 3019. I have received report from Arlene Stafford RN and had the opportunity to ask questions and assume patient care.
[2018-12-13] MEDS: docusate sod 100mg capsule PO SCH (20:00)
[2018-12-13 22:00] VITALS: BP 140/71
[2018-12-14 02:00] VITALS: BP 130/86
[2018-12-14 05:21] LABS: BASOPHILS % (AUTO) 0.6 % (0-1); EOSINOPHILS # (AUTO) 0.2 X10'3 (0-0.9); EOSINOPHILS % (AUTO) 3.2 % (0-6); HEMATOCRIT 32.7 % (42.0-52.0); HEMOGLOBIN 10.6 g/dl (14.0-17.9); LYMPHOCYTES # (AUTO) 1.2 X10'3 (1.1-4.8); LYMPHOCYTES % (AUTO) 20.6 % (21-51); MEAN CORPUSCULAR HEMOGLOBIN 30.7 PG (27.0-31.0); MEAN CORPUSCULAR HGB CONC 32.6 g/dL (33.0-36.5); MEAN CORPUSCULAR VOLUME 94.3 FL (78-98); MEAN PLATELET VOLUME 8.3 FL (7.4-10.4); MONOCYTES # (AUTO) 0.7 X10'3 (0-0.9); MONOCYTES % (AUTO) 11.5 % (2-12); NEUTROPHILS # (AUTO) 3.9 X10'3 (1.8-7.7); NEUTROPHILS % (AUTO) 64.1 % (42-75); PLATELET COUNT 267 X10'3 (140-440); RED BLOOD COUNT 3.46 X10'6 (4.70-6.10); RED CELL DISTRIBUTION WIDTH 16.5 % (11.5-14.5); WHITE BLOOD COUNT 6.1 X10'3 (4.5-11.0)
[2018-12-14 05:40] LABS: ALANINE AMINOTRANSFERASE 8 U/L (12-78); ALBUMIN 1.9 G/DL (3.4-5.0); ALBUMIN/GLOBULIN RATIO 0.5 (1.1-1.5); ALKALINE PHOSPHATASE 158 IU/L (46-116); ANION GAP 9 (8-16); ASPARTATE AMINO TRANSFERASE 11 U/L (10-37); BILIRUBIN,TOTAL 0.3 MG/DL (0.1-1.0); BLOOD UREA NITROGEN 41 MG/DL (7-18); BUN/CREATININE RATIO 13.6 (5.4-32.0); CALCIUM 8.9 MG/DL (8.5-10.1); CHLORIDE 113 MMOL/L (99-107); CREATININE 3.02 MG/DL (0.60-1.10); GLUCOSE 89 MG/DL (70-104); PHOSPHORUS 3.1 MG/DL (2.3-4.5); POTASSIUM 4.8 MMOL/L (3.5-5.1); SODIUM 143 MMOL/L (135-145); TOTAL CARBON DIOXIDE 21.3 MMOL/L (24-32); TOTAL PROTEIN 5.5 G/DL (6.4-8.2); eGFR 20 ML/MIN
[2018-12-14 06:00] VITALS: BP 139/75
--- NOTE | 2018-12-14 06:00 | NUR ---
Patient in room PCU 3019. I have received report from Wyatt RN and had the opportunity to ask questions and assume patient care.
--- NOTE | 2018-12-14 06:39 | NUR ---
Problems reprioritized. Patient report given, questions answered & plan of care reviewed with Arlene Stafford RN.
--- NOTE | 2018-12-14 07:20 | NUR ---
Page to Dr Dumont re:Room 3015 Kendall Carrillo, pt requesting to be Full Code, DNR band removed, please change code status order. Oneyda 0146
[2018-12-14] MEDS: docusate sod 100mg capsule PO SCH ×2 (08:00→19:45)
[2018-12-14] MEDS: K and/or MAG REPLACEMENT MC SCH (08:00)
[2018-12-14] MEDS: megestrol acetate 400mg/10ml UD oral suspension PO SCH ×2 (08:23→19:45)
[2018-12-14] MEDS: carvedilol 6.25mg tablet PO SCH ×2 (08:24→19:45)
[2018-12-14] MEDS: normal saline 1000ml 1,000 ML IV SCH (08:30)
[2018-12-14 11:00] VITALS: BP 114/70
[2018-12-14] MEDS: lactose-reduced food (Ensure Enlive) - 237ml bottle PO SCH ×2 (13:00→18:00)
[2018-12-14 15:00] VITALS: BP 123/83
[2018-12-14] MEDS ORDERED: LEUPROLIDE ACETATE 22.5 MG SQ ONE ×2 (16:00)
--- NOTE | 2018-12-14 17:54 | NUR ---
pt tried to get out of bed and nearly pulled out IV per report from techs, after assessing pt I found left nephrostomy tube leaking and tubing detached from hub with string still intact. IR called and they responded to bedside. IR physician secured new tubing and re-attached to drainage bag. Tubing from both nephrostomies secured with silk and foam tape. Placed pt back to bed with bed low/locked, side rails up x2, call light next to patient.Reinforced that patient needs to ask for help to get up.
--- NOTE | 2018-12-14 18:00 | NUR ---
Problems reprioritized. Patient report given, questions answered & plan of care reviewed with Beatrice VERMA.
[2018-12-14 19:00] VITALS: BP 117/75
[2018-12-14] MEDS: oxyCODONE/APAP 10/325mg tablet PO PRN (19:49)
[2018-12-14 23:00] VITALS: BP 111/71
[2018-12-15 03:00] VITALS: BP 126/63
[2018-12-15] MEDS: normal saline 1000ml 1,000 ML IV SCH (05:57)
[2018-12-15 06:00] VITALS: BP 114/72
--- NOTE | 2018-12-15 06:10 | NUR ---
Patient in room PCU 3019. I have received report from Beatrice VERMA and had the opportunity to ask questions and assume patient care.
[2018-12-15 06:25] LABS: BASOPHILS % (AUTO) 0.6 % (0-1); EOSINOPHILS # (AUTO) 0.2 X10'3 (0-0.9); EOSINOPHILS % (AUTO) 2.6 % (0-6); HEMATOCRIT 32.8 % (42.0-52.0); HEMOGLOBIN 10.8 g/dl (14.0-17.9); LYMPHOCYTES # (AUTO) 1.2 X10'3 (1.1-4.8); LYMPHOCYTES % (AUTO) 18.3 % (21-51); MEAN CORPUSCULAR HEMOGLOBIN 31.1 PG (27.0-31.0); MEAN CORPUSCULAR VOLUME 94.2 FL (78-98); MEAN PLATELET VOLUME 8.4 FL (7.4-10.4); MONOCYTES # (AUTO) 0.7 X10'3 (0-0.9); MONOCYTES % (AUTO) 10.5 % (2-12); NEUTROPHILS # (AUTO) 4.5 X10'3 (1.8-7.7); PLATELET COUNT 278 X10'3 (140-440); RED BLOOD COUNT 3.49 X10'6 (4.70-6.10); WHITE BLOOD COUNT 6.7 X10'3 (4.5-11.0)
[2018-12-15 06:37] LABS: ALANINE AMINOTRANSFERASE 9 U/L (12-78); ALBUMIN 2.1 G/DL (3.4-5.0); ALBUMIN/GLOBULIN RATIO 0.6 (1.1-1.5); ALKALINE PHOSPHATASE 162 IU/L (46-116); ANION GAP 10 (8-16); ASPARTATE AMINO TRANSFERASE 11 U/L (10-37); BILIRUBIN,TOTAL 0.3 MG/DL (0.1-1.0); BLOOD UREA NITROGEN 43 MG/DL (7-18); BUN/CREATININE RATIO 14.1 (5.4-32.0); CALCIUM 9.2 MG/DL (8.5-10.1); CHLORIDE 112 MMOL/L (99-107); CREATININE 3.05 MG/DL (0.60-1.10); GLUCOSE 90 MG/DL (70-104); PHOSPHORUS 3.5 MG/DL (2.3-4.5); POTASSIUM 4.9 MMOL/L (3.5-5.1); SODIUM 144 MMOL/L (135-145); TOTAL CARBON DIOXIDE 22.1 MMOL/L (24-32); TOTAL PROTEIN 5.8 G/DL (6.4-8.2); eGFR 20 ML/MIN
[2018-12-15] MEDS: K and/or MAG REPLACEMENT MC SCH (07:13)
[2018-12-15] MEDS: megestrol acetate 400mg/10ml UD oral suspension PO SCH (07:50)
[2018-12-15] MEDS: docusate sod 100mg capsule PO SCH (07:50)
[2018-12-15] MEDS: carvedilol 6.25mg tablet PO SCH (07:50)
[2018-12-15] MEDS: lactose-reduced food (Ensure Enlive) - 237ml bottle PO SCH ×2 (07:55→13:14)
[2018-12-15 11:00] VITALS: BP 122/74
--- NOTE | 2018-12-15 14:22 | NUR ---
Pt DC'd to [facility]. Tele-box removed and returned to tele-tech. IV removed, canula intact. Report called to [facility] Noris RN. Pt's vitals WNL and Pt stable upon DC. Pt's belongings gathered and sent with Pt. Pt wheeled down to lobby via gurney by [employer] personal and left in [facility] for [facility].
== END 2018-12-15 14:15 | DRG 723 ==
LOC: ER 13:05 → PCU 3S 20:38 → CMPBEDREQ 12-10 18:05
PROVIDERS: ADMIT Family Medicine; ATTEND Family Medicine
PROC: CP1Z1ZZ Planar Nuclear Medicine Imaging of Musculoskeletal System, All using Technetium 99m (Tc-99m) (ICD-10-PCS; 2018-12-07)
PROC: 0T9130Z Drainage of Left Kidney with Drainage Device, Percutaneous Approach (ICD-10-PCS; principal; 2018-12-10)
PROC: 0T9030Z Drainage of Right Kidney with Drainage Device, Percutaneous Approach (ICD-10-PCS; 2018-12-10)
DX: C61 Malignant neoplasm of prostate (principal); S22.43XA Multiple fractures of ribs, bilateral, initial encounter for closed fracture; N13.1 Hydronephrosis with ureteral stricture, not elsewhere classified; C79.51 Secondary malignant neoplasm of bone; N17.9 Acute kidney failure, unspecified; E87.5 Hyperkalemia; D64.9 Anemia, unspecified; I10 Essential (primary) hypertension; I48.91 Unspecified atrial fibrillation; K59.00 Constipation, unspecified; W18.39XA Other fall on same level, initial encounter; Z66 Do not resuscitate; Z96.652 Presence of left artificial knee joint; G62.9 Polyneuropathy, unspecified; R29.6 Repeated falls; M54.5 Low back pain; Z88.8 Allergy status to other drugs, medicaments and biological substances; Y93.89 Activity, other specified; Y92.89 Other specified places as the place of occurrence of the external cause; Y99.8 Other external cause status; Z85.038 Personal history of other malignant neoplasm of large intestine; Z90.49 Acquired absence of other specified parts of digestive tract; Z85.46 Personal history of malignant neoplasm of prostate; Z92.21 Personal history of antineoplastic chemotherapy; Z92.3 Personal history of irradiation; Z87.891 Personal history of nicotine dependence; Z85.820 Personal history of malignant melanoma of skin; Z86.718 Personal history of other venous thrombosis and embolism; Z79.01 Long term (current) use of anticoagulants
CPT/HCPCS: 36415; 50432; 70450; 70544; 70551; 74176; 76775; 78306; 80053; 80061; 81001; 82378; 82570; 83036; 83735; 83935; 84100; 84153; 84154; 84156; 84300; 85025; 85610; 85730; 86301; 86304; 87081; 87207; 93005; 93306; 94640; 94760; 96360; 97110; 97112; 97116; 97163; 97530; 99285; A9503; A9585; C1729; C1769; C1894; G0378; J1200; J3010; J7030; J9218; Q9967

== ENCOUNTER 2018-12-19 12:06 | Day surgery (SDC) | payer MEDICARE, MEDICAID ==
[~2018-12-19] VITALS: Ht 195.6 cm; Wt 101.0 kg
[~2018-12-19 12:06] MED LIST changes: -ADV50100 IH; -ALB0.5UD IH; +ALBU18HF2 PO; -AMIT-189 PO; -AMOX-580 PO; -APIX2.5T PO; +APIX5TAB3 PO; -ATE25T PO; -CLIN300C11 PO; -FURO-150 PO; -FURO40TA4 PO; -LISI-600 PO; +NAPR220T67 PO; -OMEP-50 PO; -POTA-82 PO; -POTA10CA44 PO; -SUCR1TAB34 PO
[2018-12-19 12:35] VITALS: BP 134/76
[2018-12-19] MEDS ORDERED: normal saline 1000ml 1,000 ML IV SCH (12:45)
[2018-12-19] MEDS ORDERED: CefTRIAXone 2gm/D5W 50ml 50 ML IV ONE (12:45)
[2018-12-19 13:25] LABS: BASOPHILS % (AUTO) 0.3 % (0-1); EOSINOPHILS # (AUTO) 0.1 X10'3 (0-0.9); EOSINOPHILS % (AUTO) 1.3 % (0-6); HEMOGLOBIN 10.4 g/dl (14.0-17.9); LYMPHOCYTES # (AUTO) 1.2 X10'3 (1.1-4.8); LYMPHOCYTES % (AUTO) 13.2 % (21-51); MEAN CORPUSCULAR HEMOGLOBIN 30.7 PG (27.0-31.0); MEAN CORPUSCULAR HGB CONC 32.6 g/dL (33.0-36.5); MEAN CORPUSCULAR VOLUME 94.4 FL (78-98); MEAN PLATELET VOLUME 8.1 FL (7.4-10.4); MONOCYTES # (AUTO) 1.1 X10'3 (0-0.9); MONOCYTES % (AUTO) 12.6 % (2-12); NEUTROPHILS # (AUTO) 6.4 X10'3 (1.8-7.7); NEUTROPHILS % (AUTO) 72.6 % (42-75); PLATELET COUNT 268 X10'3 (140-440); RED BLOOD COUNT 3.39 X10'6 (4.70-6.10); RED CELL DISTRIBUTION WIDTH 16.1 % (11.5-14.5); WHITE BLOOD COUNT 8.8 X10'3 (4.5-11.0)
[2018-12-19] MEDS ORDERED: POLY17PO10 PO (13:26)
[2018-12-19] MEDS ORDERED: MEGE40TA27 PO (13:26)
[2018-12-19] MEDS ORDERED: DOCU-148 PO (13:26)
[2018-12-19] MEDS ORDERED: OXYC-150 PO (13:26)
[2018-12-19] MEDS ORDERED: CARV-49 PO (13:26)
[2018-12-19 13:31] LABS: ALBUMIN 2.3 G/DL (3.4-5.0); ANION GAP 10 (8-16); BLOOD UREA NITROGEN 49 MG/DL (7-18); BUN/CREATININE RATIO 14.6 (5.4-32.0); CALCIUM 8.7 MG/DL (8.5-10.1); CHLORIDE 110 MMOL/L (99-107); CREATININE 3.36 MG/DL (0.60-1.10); GLUCOSE 94 MG/DL (70-104); POTASSIUM 4.8 MMOL/L (3.5-5.1); SODIUM 143 MMOL/L (135-145); TOTAL CARBON DIOXIDE 22.7 MMOL/L (24-32); eGFR 18 ML/MIN
[2018-12-19] MEDS ORDERED: ceFAZolin 1GM/D5W- ADD-VANTAGE 50 ML IV ONE (14:20)
[2018-12-19] MEDS ORDERED: fentaNYL/PF 50MCG/1 ML 2ML syringe IV PRN (14:25)
[2018-12-19] MEDS ORDERED: midazolam 2 mg/2 ml injection IV PRN (14:25)
[2018-12-19] MEDS ORDERED: fentaNYL/PF 50MCG/1 ML 2ML syringe ONE (14:27)
[2018-12-19] MEDS ORDERED: LIDOcaine 1%/PF 5ML 10 MG/ML VIAL ONE (14:28)
[2018-12-19] MEDS ORDERED: iohexol 300 MG/1 ML 50ml polymer ONE (14:28)
[2018-12-19] MEDS ORDERED: midazolam 2 mg/2 ml injection ONE (14:28)
[2018-12-19 15:20] VITALS: BP 131/62
[2018-12-19 15:34] VITALS: BP 125/71
[2018-12-19 15:49] VITALS: BP 124/73
[2018-12-19 16:04] VITALS: BP 123/69
[2018-12-19 16:19] VITALS: BP 130/70
== END 2018-12-19 16:55 | disposition home or self-care (01) ==
LOC: SSTAY O 12:06
PROVIDERS: ATTEND Radiology Diagnostic Radiology
DX: T83.012A Breakdown (mechanical) of nephrostomy catheter, initial encounter (principal); N17.9 Acute kidney failure, unspecified; N13.9 Obstructive and reflux uropathy, unspecified; D64.9 Anemia, unspecified; I48.91 Unspecified atrial fibrillation; Z88.8 Allergy status to other drugs, medicaments and biological substances; Z79.899 Other long term (current) drug therapy; Z85.46 Personal history of malignant neoplasm of prostate; Y83.8 Other surgical procedures as the cause of abnormal reaction of the patient, or of later complication, without mention of misadventure at the time of the procedure; Y92.89 Other specified places as the place of occurrence of the external cause
CPT/HCPCS: 36415; 50435; 80048; 85025; 85610; C1729; C1769; J0696; J2250; J3010; Q9967; A6213

== ENCOUNTER 2018-12-20 18:27 | Emergency (ER) | payer MEDICARE, MEDICAID ==
[~2018-12-20] VITALS: Ht 190.5 cm; Wt 90.9 kg
[~2018-12-20 18:27] MED LIST changes: +CARV-49 PO; +DOCU-148 PO; +MEGE40TA27 PO; -NAPR220T67 PO; +OXYC-150 PO; +POLY17PO10 PO
--- NOTE | 2018-12-20 18:53 | NUR ---
covered him up with warmed blankets.
[2018-12-20 19:13] LABS: BASOPHILS # (AUTO) 0.1 X10'3 (0-0.2); BASOPHILS % (AUTO) 0.7 % (0-1); EOSINOPHILS # (AUTO) 0.1 X10'3 (0-0.9); EOSINOPHILS % (AUTO) 1.2 % (0-6); HEMOGLOBIN 10.2 g/dl (14.0-17.9); LYMPHOCYTES # (AUTO) 1.1 X10'3 (1.1-4.8); LYMPHOCYTES % (AUTO) 11.1 % (21-51); MEAN CORPUSCULAR HEMOGLOBIN 31.1 PG (27.0-31.0); MEAN CORPUSCULAR VOLUME 94.3 FL (78-98); MEAN PLATELET VOLUME 7.9 FL (7.4-10.4); MONOCYTES # (AUTO) 1.2 X10'3 (0-0.9); NEUTROPHILS # (AUTO) 7.5 X10'3 (1.8-7.7); PLATELET COUNT 250 X10'3 (140-440); RED BLOOD COUNT 3.29 X10'6 (4.70-6.10); RED CELL DISTRIBUTION WIDTH 15.9 % (11.5-14.5)
[2018-12-20 19:28] LABS: PARTIAL THROMBOPLASTIN TIME 29 SECONDS (22-32)
[2018-12-20 19:28] LABS: CLARITY,URINE CLEAR (Clear); COLOR,URINE YELLOW (Yellow); GLUCOSE, URINE NEGATIVE (Neg); KETONES,URINE NEGATIVE (Neg); LEUKOCYTE ESTERASE ,URINE SMALL (Neg); NITRITES, URINE NEGATIVE (Neg); OCCULT BLOOD,URINE MODERATE (Neg); PH,URINE 7.5 (4.8-8.0); PROTEIN,URINE 100 mg/dl (Neg); UROBILINOGEN,URINE 0.2 E.U/dL (0.2-1.0)
[2018-12-20 19:28] LABS: CLARITY,URINE SLIGHTLY CLOUDY (Clear); COLOR,URINE YELLOW (Yellow); GLUCOSE, URINE NEGATIVE (Neg); KETONES,URINE NEGATIVE (Neg); LEUKOCYTE ESTERASE ,URINE LARGE (Neg); NITRITES, URINE NEGATIVE (Neg); OCCULT BLOOD,URINE LARGE (Neg); PROTEIN,URINE >=300 mg/dl (Neg); UROBILINOGEN,URINE 0.2 E.U/dL (0.2-1.0)
[2018-12-20 19:30] LABS: ALBUMIN 2.1 G/DL (3.4-5.0); ALBUMIN/GLOBULIN RATIO 0.5 (1.1-1.5); ALKALINE PHOSPHATASE 148 IU/L (46-116); ANION GAP 10 (8-16); ASPARTATE AMINO TRANSFERASE 13 U/L (10-37); BILIRUBIN,TOTAL 0.3 MG/DL (0.1-1.0); BLOOD UREA NITROGEN 52 MG/DL (7-18); BUN/CREATININE RATIO 15.4 (5.4-32.0); CALCIUM 8.9 MG/DL (8.5-10.1); CHLORIDE 111 MMOL/L (99-107); CREATININE 3.37 MG/DL (0.60-1.10); GLUCOSE 107 MG/DL (70-104); POTASSIUM 5.2 MMOL/L (3.5-5.1); SODIUM 141 MMOL/L (135-145); TOTAL CARBON DIOXIDE 19.7 MMOL/L (24-32); TOTAL PROTEIN 6.2 G/DL (6.4-8.2); eGFR 18 ML/MIN
[2018-12-20 19:30] LABS: UA COLLECTION TYPE OTHER
[2018-12-20 19:30] LABS: UA COLLECTION TYPE OTHER
[2018-12-20 19:33] LABS: ALANINE AMINOTRANSFERASE < 6 U/L (12-78)
[2018-12-20 19:35] LABS: RBC,URINE 50-100 /HPF (0-2)
[2018-12-20 19:36] LABS: BACTERIA,URINE 1+ /HPF (Neg); MUCUS STRANDS NONE SEEN /LPF (Neg); SQUAMOUS EPITHELIAL CELL,UR NONE SEEN /LPF (FEW)
[2018-12-20 19:39] LABS: BACTERIA,URINE NONE SEEN /HPF (Neg); MUCUS STRANDS NONE SEEN /LPF (Neg); SQUAMOUS EPITHELIAL CELL,UR NONE SEEN /LPF (FEW)
[2018-12-20] MEDS ORDERED: CefTRIAXone 2gm/D5W 50ml 50 ML IV ONE (20:00)
[2018-12-20] MEDS ORDERED: normal saline 1000ML IV soln IV ONE (20:00)
--- NOTE | 2018-12-20 20:16 | NUR ---
Left nephrostomy tube flushed with 10 ml NS at this time per Urologist recommendation, Dr Perry at bedside, flush easy with full return of 10 ml, minimal pink tinge to urine.
--- NOTE | 2018-12-20 20:17 | NUR ---
xray at bedside.
--- NOTE | 2018-12-20 21:10 | NUR ---
SBAR to RN at [facility]. Working on transport to facility.
--- NOTE | 2018-12-20 21:16 | NUR ---
ERMIAS FROM [facility] CALLED, SHE WILL CALL WITH AN ETA
--- NOTE | 2018-12-20 23:07 | NUR ---
visited with him and fed him jello and yogurt and an apple juice. We had a nice conversation. He has 4 sons and 3 step children and a . His favorite place was [place], he lived there for 2 years.
[2018-12-21 00:27] VITALS: BP 135/73
== END 2018-12-21 00:28 | disposition home or self-care (01) ==
LOC: ER 18:27
DX: Z43.8 Encounter for attention to other artificial openings (principal); R31.9 Hematuria, unspecified; G62.9 Polyneuropathy, unspecified; I48.91 Unspecified atrial fibrillation; I10 Essential (primary) hypertension; Z85.038 Personal history of other malignant neoplasm of large intestine; Z98.890 Other specified postprocedural states; Z60.2 Problems related to living alone; Z88.8 Allergy status to other drugs, medicaments and biological substances; Z79.899 Other long term (current) drug therapy
CPT/HCPCS: 36415; 74018; 80053; 81001; 85025; 85610; 85730; 87088; 99284; J7030

== ENCOUNTER 2019-01-08 12:32 | Emergency (ER) | payer MEDICARE, MEDICAID ==
[~2019-01-08] VITALS: Ht 195.6 cm; Wt 108.0 kg
[2019-01-08 13:04] LABS: BASOPHILS % (AUTO) 0.4 % (0-1); EOSINOPHILS # (AUTO) 0.2 X10'3 (0-0.9); EOSINOPHILS % (AUTO) 1.9 % (0-6); HEMATOCRIT 30.7 % (42.0-52.0); HEMOGLOBIN 9.7 g/dl (14.0-17.9); LYMPHOCYTES # (AUTO) 0.7 X10'3 (1.1-4.8); LYMPHOCYTES % (AUTO) 8.9 % (21-51); MEAN CORPUSCULAR HEMOGLOBIN 30.4 PG (27.0-31.0); MEAN CORPUSCULAR HGB CONC 31.6 g/dL (33.0-36.5); MEAN CORPUSCULAR VOLUME 96.2 FL (78-98); MEAN PLATELET VOLUME 8.3 FL (7.4-10.4); MONOCYTES # (AUTO) 0.7 X10'3 (0-0.9); MONOCYTES % (AUTO) 9.2 % (2-12); NEUTROPHILS # (AUTO) 6.4 X10'3 (1.8-7.7); NEUTROPHILS % (AUTO) 79.6 % (42-75); PLATELET COUNT 290 X10'3 (140-440); RED BLOOD COUNT 3.19 X10'6 (4.70-6.10); RED CELL DISTRIBUTION WIDTH 16.8 % (11.5-14.5)
[2019-01-08 13:18] LABS: PARTIAL THROMBOPLASTIN TIME 29 SECONDS (22-32)
[2019-01-08 13:22] LABS: ALANINE AMINOTRANSFERASE 15 U/L (12-78); ALBUMIN 2.5 G/DL (3.4-5.0); ALBUMIN/GLOBULIN RATIO 0.6 (1.1-1.5); ALKALINE PHOSPHATASE 116 IU/L (46-116); ANION GAP 11 (8-16); ASPARTATE AMINO TRANSFERASE 10 U/L (10-37); BILIRUBIN,TOTAL 0.2 MG/DL (0.1-1.0); BLOOD UREA NITROGEN 80 MG/DL (7-18); BUN/CREATININE RATIO 22.3 (5.4-32.0); CALCIUM 9.1 MG/DL (8.5-10.1); CHLORIDE 115 MMOL/L (99-107); CREATININE 3.58 MG/DL (0.60-1.10); GLUCOSE 90 MG/DL (70-104); POTASSIUM 5.1 MMOL/L (3.5-5.1); SODIUM 149 MMOL/L (135-145); TOTAL CARBON DIOXIDE 23.5 MMOL/L (24-32); eGFR 17 ML/MIN
--- NOTE | 2019-01-08 13:30 | NUR ---
Pt's IV access that was in the right hand upon arrival from [facility] is not patent. New access started in the left forearm without complications by Tl Elena RN.
--- NOTE | 2019-01-08 13:32 | NUR ---
Labs are resulted. Provider notified that will be involved with the replacement of the nephrostomy tube.
--- NOTE | 2019-01-08 14:21 | NUR ---
Pt continues to be confused per baseline. Pt noted to have edema of the upper extremities, abdomen, and thighs as well. Pt noted to have weaping from skin generalized.
[2019-01-08] MEDS ORDERED: LIDOcaine 1%/PF 5ML 10 MG/ML VIAL SQ ONE (14:45)
[2019-01-08] MEDS ORDERED: fentaNYL/PF 50MCG/1 ML 2ML syringe IV PRN (14:45)
--- NOTE | 2019-01-08 15:10 | NUR ---
Dr. Wolfe and two staff nurses from [facility] at bedside to discuss the pending replacement of the nephrostomy tube with the patient. Pt verbalized understanding to the best of his ability with Dr. Wolfe and LUCI Fatima spoke with Christine, Next of Kin telephoned and gave verbal ok. Dr. Wolfe to phone the NOK and discuss the consent for procedure with her. Pt to [facility] at this time then will return to the ED after the procedure.
[2019-01-08] MEDS ORDERED: iohexol 300 MG/1 ML 50ml polymer ONE (15:12)
[2019-01-08] MEDS ORDERED: DOCU1ENE3 RC (15:20)
[2019-01-08] MEDS ORDERED: ACET-2119 PO (15:20)
[2019-01-08] MEDS ORDERED: MEGE400O4 PO (15:20)
[2019-01-08] MEDS ORDERED: MAG355OR18 PO (15:20)
[2019-01-08] MEDS ORDERED: MULT-955 PO (15:20)
[2019-01-08] MEDS ORDERED: BALS60OI TP (15:20)
[2019-01-08] MEDS ORDERED: HYDR-3972 PO (15:22)
[2019-01-08] MEDS ORDERED: TEMA15CA PO (15:22)
[2019-01-08] MEDS ORDERED: fentaNYL/PF 50MCG/1 ML 2ML syringe ONE (15:31)
[2019-01-08] MEDS ORDERED: diphenhydrAMINE 50 mg/ml inj ONE (15:47)
--- NOTE | 2019-01-08 16:15 | NUR ---
Pt returned from [facility] dept from having the left nephrostomy tube replaced Pt is alert but sleepy. Pt has no significant change in vitals from prior to procedure. Pt was given benadryl and fentanyl IV during the procedure. Patency of the nephrostomy tube verified by Dr. Higgins.
--- NOTE | 2019-01-08 16:45 | NUR ---
Dr. Mehta notified that patient is more confused and leaning to the right upon return from procedure, new from previous status. No new orders at this time. Pt is still pending transfer back to [facility] for continued care.
--- NOTE | 2019-01-08 17:10 | NUR ---
Attempted to phone report to [facility].
--- NOTE | 2019-01-08 17:39 | NUR ---
Telephone report given to LUCI Guerrero at [facility]. Pt to be transport back to [facility] when [facility] has an available transport crew. Pt's condition is stable at this time.
--- NOTE | 2019-01-08 18:25 | NUR ---
Pt noted to be fidgeting and pulling at his dressings, lines, and tubes more than previous. Unable to reorient the patient. Attempted to reposition and pad the areas of concern to prevent the patient from dislodging IV, tinoco, or nephrostomy tubes. Pt pulled a dressing off the skin tear noted on the left forearm, near the elbow. New dressing to be applied. Dr. Mehta notified of the combativeness and difficulty to prevent injury by the patient.
[2019-01-08] MEDS ORDERED: haloperidol lactate 5mg/ml inj IM ONE (18:35)
[2019-01-08] MEDS ORDERED: LORazepam 2 mg/ml vial IM ONE (18:35)
--- NOTE | 2019-01-08 18:37 | NUR ---
Restraints from Jon[facility] re-applied per Dr. Lima's ED order.
--- NOTE | 2019-01-08 18:45 | NUR ---
Medicated as ordered for combative and aggitated behavior.
--- NOTE | 2019-01-08 18:53 | NUR ---
transport for this pt will be here in approx 20 mins
--- NOTE | 2019-01-08 19:10 | NUR ---
Medic crew from [facility] at the bedside and noted the patient's pupils are unequal, informed Dr. Mehta and he came to the room to re-assess the patient. Pt to have CT scan.
--- NOTE | 2019-01-08 19:16 | NUR ---
Pt to CT scan via gurney with the side rails raised, with LCUI Stanford, with monitor, BP cuff and pulse ox.
--- NOTE | 2019-01-08 19:56 | NUR ---
Jon[facility] contacted to spend patient back at Dr. Ritter request based on CT read.
[2019-01-08 21:10] VITALS: BP 124/71
== END 2019-01-08 19:30 ==
LOC: ER 12:33
DX: I12.9 Hypertensive chronic kidney disease with stage 1 through stage 4 chronic kidney disease, or unspecified chronic kidney disease (principal); N18.9 Chronic kidney disease, unspecified; G62.9 Polyneuropathy, unspecified; I48.91 Unspecified atrial fibrillation; I10 Essential (primary) hypertension; Z43.6 Encounter for attention to other artificial openings of urinary tract; Z98.890 Other specified postprocedural states; Z85.038 Personal history of other malignant neoplasm of large intestine; Z60.2 Problems related to living alone; Z88.8 Allergy status to other drugs, medicaments and biological substances; Z79.899 Other long term (current) drug therapy
CPT/HCPCS: 36415; 50432; 70450; 80053; 85025; 85610; 85730; 96372; 99284; C1729; C1769; J1200; J1630; J2060; J3010; Q9967

== ENCOUNTER 2019-01-08 20:14 | Inpatient (IN) | payer MEDICARE, MEDICAID ==
[~2019-01-08] VITALS: Ht 195.6 cm; Wt 108.0 kg
[~2019-01-08 20:14] MED LIST changes: +ACET-2119 PO; +BALS60OI TP; +DOCU1ENE3 RC; +HYDR-3972 PO; +MAG355OR18 PO; +MEGE400O4 PO; +MULT-955 PO; +TEMA15CA PO
--- NOTE | 2019-01-08 20:43 | NUR ---
REQUESTED AND RECEIVED PT CODE STATUS FAXED FROM [facility]. PRESENTED CODE STATUS OF DNR TO MD OHLFS WHO AGREED TO DNR STATUS. DNR BAND APPLIED AND SIGNED BY MYSELF AND JAMILA VERMA
--- NOTE | 2019-01-08 20:56 | NUR ---
CALL TO FAMILY MEMBER MIRZA AT THIS TIME TO UPDATE, FAMILY TO COME TO [place] TO BE WITH PATIENT.
[2019-01-08 21:18] LABS: CLARITY,URINE CLOUDY (Clear); UA COLLECTION TYPE OTHER
[2019-01-08 21:19] LABS: CLARITY,URINE CLOUDY (Clear); COLOR,URINE RED (Yellow); COLOR,URINE YELLOW (Yellow); GLUCOSE, URINE NEGATIVE (Neg); KETONES,URINE NEGATIVE (Neg); LEUKOCYTE ESTERASE ,URINE LARGE (Neg); NITRITES, URINE NEGATIVE (Neg); OCCULT BLOOD,URINE LARGE (Neg); PH,URINE 8.5 (4.8-8.0); PROTEIN,URINE >=300 mg/dl (Neg); UROBILINOGEN,URINE 0.2 E.U/dL (0.2-1.0)
[2019-01-08 21:22] LABS: UA COLLECTION TYPE OTHER
--- NOTE | 2019-01-08 21:25 | NUR ---
PT'S FAMILY FRIEND AND SON ARE AT BEDSIDE.
[2019-01-08 21:27] LABS: WBC,URINE 20-30 /HPF (0-4)
[2019-01-08 21:28] LABS: BACTERIA,URINE 1+ /HPF (Neg); RBC,URINE 50-100 /HPF (0-2); SQUAMOUS EPITHELIAL CELL,UR NONE SEEN /LPF (FEW); TRIPLE PHOSPHATE CRYST 1+ /HPF (NEGATIVE)
[2019-01-08 21:34] LABS: RBC,URINE TNTC /HPF (0-2)
[2019-01-08 21:35] LABS: BACTERIA,URINE NONE SEEN /HPF (Neg); SQUAMOUS EPITHELIAL CELL,UR NONE SEEN /LPF (FEW)
[2019-01-08] MEDS ORDERED: morphine 4 MG/ML inj SYRINge IV ONE (21:45)
--- NOTE | 2019-01-08 21:46 | NUR ---
DR JON MADE AWARE FAMILY STATES PATIENT HAS BEEN GROANING AND RESTLESS WITH OCCASIONAL "WHIMPERING". ORDERS RECEIVED (SEE EMAR).
[2019-01-08] MEDS ORDERED: vancomycin inj 1,000 MG in normal saline 250ml IV soln 250 ML IV ONE (21:55)
[2019-01-08 22:05] LABS: ALANINE AMINOTRANSFERASE 16 U/L (12-78); ALBUMIN 2.5 G/DL (3.4-5.0); ALBUMIN/GLOBULIN RATIO 0.6 (1.1-1.5); ALKALINE PHOSPHATASE 117 IU/L (46-116); ANION GAP 11 (8-16); ASPARTATE AMINO TRANSFERASE 15 U/L (10-37); BILIRUBIN,TOTAL 0.2 MG/DL (0.1-1.0); BLOOD UREA NITROGEN 83 MG/DL (7-18); BUN/CREATININE RATIO 22.7 (5.4-32.0); CALCIUM 9.6 MG/DL (8.5-10.1); CHLORIDE 116 MMOL/L (99-107); CREATININE 3.65 MG/DL (0.60-1.10); GLUCOSE 91 MG/DL (70-104); SODIUM 149 MMOL/L (135-145); TOTAL CARBON DIOXIDE 22.1 MMOL/L (24-32); eGFR 16 ML/MIN
[2019-01-08 22:06] LABS: POTASSIUM 5.5 MMOL/L (3.5-5.1)
[2019-01-08 22:08] LABS: MAGNESIUM 2.3 MG/DL (1.5-2.4); TROPONIN I 0.08 NG/ML (0.0-0.05)
[2019-01-08 22:13] LABS: BASOPHILS % (AUTO) 0.5 % (0-1); EOSINOPHILS # (AUTO) 0.1 X10'3 (0-0.9); EOSINOPHILS % (AUTO) 1.4 % (0-6); HEMATOCRIT 30.8 % (42.0-52.0); HEMOGLOBIN 9.9 g/dl (14.0-17.9); LYMPHOCYTES # (AUTO) 0.7 X10'3 (1.1-4.8); LYMPHOCYTES % (AUTO) 8.4 % (21-51); MEAN CORPUSCULAR HGB CONC 32.3 g/dL (33.0-36.5); MEAN CORPUSCULAR VOLUME 96.1 FL (78-98); MEAN PLATELET VOLUME 8.1 FL (7.4-10.4); MONOCYTES # (AUTO) 0.8 X10'3 (0-0.9); MONOCYTES % (AUTO) 9.7 % (2-12); NEUTROPHILS # (AUTO) 6.9 X10'3 (1.8-7.7); PLATELET COUNT 297 X10'3 (140-440); RED CELL DISTRIBUTION WIDTH 16.5 % (11.5-14.5); WHITE BLOOD COUNT 8.6 X10'3 (4.5-11.0)
[2019-01-08] MEDS ORDERED: vancomycin/NS 1 GM ADD-VANTAGE 250 ML X 1 DOSE IV ONE (22:20)
[2019-01-08] MEDS ORDERED: magnesium hydroxide 30ml (MOM) UD suspension PO PRN (23:00)
[2019-01-08] MEDS ORDERED: diltiazem 5mg/ml 5ml inj. IV ONE (23:00)
[2019-01-08] MEDS ORDERED: acetaminophen 325mg tablet PO PRN ×3 (23:00→23:05)
[2019-01-08] MEDS ORDERED: mag hydrox/Alum hydrox/simeth 30ml oral suspension PO PRN ×2 (23:00→23:05)
[2019-01-08] MEDS ORDERED: ondansetron/PF 4mg/2ml inj IV PRN (23:00)
[2019-01-08] MEDS ORDERED: HYDROcodone/acetaminophen 10/325mg tab PO PRN (23:05)
[2019-01-09] MEDS ORDERED: albuterol 2.5 MG/3 ML nebule NEB PRN (01:20)
[2019-01-09] MEDS ORDERED: DOCUSATE SODIUM RC PRN (01:25)
[2019-01-09] MEDS ORDERED: BENZOCAINE RC PRN (01:25)
[2019-01-09 01:30] VITALS: BP 145/85
[2019-01-09 04:43] LABS: BASOPHILS # (AUTO) 0.1 X10'3 (0-0.2); BASOPHILS % (AUTO) 0.7 % (0-1); EOSINOPHILS # (AUTO) 0.1 X10'3 (0-0.9); HEMOGLOBIN 9.2 g/dl (14.0-17.9); LYMPHOCYTES % (AUTO) 11.7 % (21-51); MEAN CORPUSCULAR HEMOGLOBIN 30.6 PG (27.0-31.0); MEAN CORPUSCULAR HGB CONC 31.9 g/dL (33.0-36.5); MEAN PLATELET VOLUME 8.3 FL (7.4-10.4); MONOCYTES # (AUTO) 0.8 X10'3 (0-0.9); MONOCYTES % (AUTO) 9.8 % (2-12); NEUTROPHILS # (AUTO) 6.6 X10'3 (1.8-7.7); NEUTROPHILS % (AUTO) 76.8 % (42-75); PLATELET COUNT 281 X10'3 (140-440); RED BLOOD COUNT 3.02 X10'6 (4.70-6.10); RED CELL DISTRIBUTION WIDTH 16.5 % (11.5-14.5); WHITE BLOOD COUNT 8.6 X10'3 (4.5-11.0)
[2019-01-09 04:53] LABS: ALBUMIN 2.3 G/DL (3.4-5.0); ANION GAP 13 (8-16); BLOOD UREA NITROGEN 80 MG/DL (7-18); BUN/CREATININE RATIO 21.6 (5.4-32.0); CALCIUM 9.4 MG/DL (8.5-10.1); CHLORIDE 115 MMOL/L (99-107); CHOL/HDL RATIO 3.3 (0.00-4.99); CHOLESTEROL 125 MG/DL (0-200); GLUCOSE 87 MG/DL (70-104); HDL CHOLESTEROL 38 MG/DL (35-60); LDL CHOLESTEROL 80 MG/DL (50-100); POTASSIUM 5.3 MMOL/L (3.5-5.1); SODIUM 150 MMOL/L (135-145); TOTAL CARBON DIOXIDE 22.4 MMOL/L (24-32); TRIGLYCERIDES 66 MG/DL (20-135); eGFR 16 ML/MIN
[2019-01-09 06:00] VITALS: BP 155/87
--- NOTE | 2019-01-09 06:30 | NUR ---
RECEIVED REPORT FROM LUCI GALLEGO
[2019-01-09] MEDS: carvedilol 6.25mg tablet PO SCH ×2 (08:00→20:00)
[2019-01-09] MEDS ORDERED: furosemide 40mg/4ml inj IV SCH (08:00)
[2019-01-09] MEDS: multivitamins, therapeutics tablet PO SCH (08:00)
[2019-01-09] MEDS: azithromycin 250mg tablet PO SCH (08:00)
[2019-01-09] MEDS: polyethylene glycol 3350 17gm powd pack PO SCH (08:00)
[2019-01-09] MEDS: aspirin 81mg tablet.DR PO SCH (08:00)
[2019-01-09] MEDS: megestrol acetate 400mg/10ml UD oral suspension PO SCH ×2 (08:00→20:00)
[2019-01-09] MEDS ORDERED: docusate sod 100mg capsule PO SCH (08:00)
[2019-01-09] MEDS: CefTRIAXone/D5W-Rocephin 1gm 50 ML IV SCH (08:47)
[2019-01-09] MEDS: heparin, porcine 5000 units/ml vial SQ SCH ×2 (08:57→21:55)
--- NOTE | 2019-01-09 09:05 | NUR ---
Student Medication Administration: For this medication-pass time frame, all medication were reviewed, dispensed, administered and documented per hospital policy by Brian MARES.
--- NOTE | 2019-01-09 09:35 | NUR ---
PAGER ID: [phone] MESSAGE: Soha [phone] Kendall Salgado in [id number]- pt is in restraints, pulling at lines, can we get something for anxiety and pain? He is npo need IV orders thank you
[2019-01-09 10:00] VITALS: BP 156/94
[2019-01-09] MEDS ORDERED: LORazepam 2 mg/ml vial IV ONE (10:30)
--- NOTE | 2019-01-09 12:09 | NUR ---
Student documentation: I have reviewed and agree with all interventions, assessments performed and documented by SN Madison [facility].
[2019-01-09 14:00] VITALS: BP 122/77
[2019-01-09] MEDS ORDERED: morphine 2 MG/ML inj. syringe IV PRN (17:45)
[2019-01-09] MEDS: morphine 2 MG/ML inj. syringe IV PRN (17:57)
[2019-01-09 18:00] VITALS: BP 122/91
--- NOTE | 2019-01-09 18:40 | NUR ---
gave report to ofelia damon
--- NOTE | 2019-01-09 18:53 | NUR ---
Patient in room ORTHO 4012. I have received report from LUCI Hoyos and had the opportunity to ask questions and assume patient care.
[2019-01-09] MEDS: docusate sod 100mg capsule PO SCH (20:00)
[2019-01-09] MEDS: lactobacillus rhamnosus 10,000 MMU CELLS/CAPSULE PO SCH (20:00)
--- NOTE | 2019-01-09 20:50 | NUR ---
pt has bilateral nephroscopy tubes. left side draining small amout less than 100ml/shift. right side more drainage up to 500ml/shift. tinoco in place TENTER FEEDER draining 200ml/shift. neph sites CDI dressings intact Addendum: 01/11/19 at 0300 by Tyson Reid RN Amended: Links added.
[2019-01-09] MEDS: temazepam 15mg capsule PO SCH (21:00)
[2019-01-09 22:00] VITALS: BP 148/71
[2019-01-10] MEDS: morphine 2 MG/ML inj. syringe IV PRN (05:29)
[2019-01-10 06:10] VITALS: BP 146/83
[2019-01-10 06:22] LABS: BASOPHILS # (AUTO) 0.1 X10'3 (0-0.2); BASOPHILS % (AUTO) 0.9 % (0-1); EOSINOPHILS # (AUTO) 0.2 X10'3 (0-0.9); EOSINOPHILS % (AUTO) 2.8 % (0-6); HEMATOCRIT 28.8 % (42.0-52.0); HEMOGLOBIN 9.4 g/dl (14.0-17.9); LYMPHOCYTES # (AUTO) 0.9 X10'3 (1.1-4.8); LYMPHOCYTES % (AUTO) 11.4 % (21-51); MEAN CORPUSCULAR HEMOGLOBIN 31.1 PG (27.0-31.0); MEAN CORPUSCULAR HGB CONC 32.7 g/dL (33.0-36.5); MEAN CORPUSCULAR VOLUME 95.1 FL (78-98); MEAN PLATELET VOLUME 8.6 FL (7.4-10.4); MONOCYTES # (AUTO) 0.7 X10'3 (0-0.9); NEUTROPHILS # (AUTO) 5.8 X10'3 (1.8-7.7); NEUTROPHILS % (AUTO) 75.9 % (42-75); PLATELET COUNT 267 X10'3 (140-440); RED BLOOD COUNT 3.03 X10'6 (4.70-6.10); WHITE BLOOD COUNT 7.6 X10'3 (4.5-11.0)
--- NOTE | 2019-01-10 06:30 | NUR ---
I have received patient report from Merari VERMA
[2019-01-10 06:31] LABS: ALBUMIN 2.4 G/DL (3.4-5.0); ANION GAP 14 (8-16); BLOOD UREA NITROGEN 84 MG/DL (7-18); BUN/CREATININE RATIO 21.4 (5.4-32.0); CALCIUM 9.6 MG/DL (8.5-10.1); CHLORIDE 116 MMOL/L (99-107); CREATININE 3.92 MG/DL (0.60-1.10); GLUCOSE 71 MG/DL (70-104); POTASSIUM 4.7 MMOL/L (3.5-5.1); SODIUM 151 MMOL/L (135-145); TOTAL CARBON DIOXIDE 20.9 MMOL/L (24-32); eGFR 15 ML/MIN
--- NOTE | 2019-01-10 06:46 | NUR ---
Problems reprioritized. Patient report given, questions answered & plan of care reviewed with LUCI Barron.
[2019-01-10] MEDS: docusate sod 100mg capsule PO SCH ×2 (08:00→20:00)
[2019-01-10] MEDS: multivitamins, therapeutics tablet PO SCH (08:00)
[2019-01-10] MEDS: megestrol acetate 400mg/10ml UD oral suspension PO SCH ×2 (08:00→20:00)
[2019-01-10] MEDS: aspirin 81mg tablet.DR PO SCH (08:00)
[2019-01-10] MEDS: polyethylene glycol 3350 17gm powd pack PO SCH (08:00)
[2019-01-10] MEDS: carvedilol 6.25mg tablet PO SCH ×2 (08:00→20:00)
[2019-01-10] MEDS: azithromycin 250mg tablet PO SCH (08:00)
[2019-01-10] MEDS: lactobacillus rhamnosus 10,000 MMU CELLS/CAPSULE PO SCH ×2 (08:00→20:00)
[2019-01-10] MEDS: CefTRIAXone/D5W-Rocephin 1gm 50 ML IV SCH (08:45)
[2019-01-10] MEDS: heparin, porcine 5000 units/ml vial SQ SCH ×2 (08:46→21:05)
[2019-01-10 10:00] VITALS: BP 118/75
[2019-01-10] MEDS: LORazepam 2 mg/ml vial IV PRN (11:40)
[2019-01-10] MEDS ORDERED: morphine 2 MG/ML inj. syringe IV ONE (13:20)
[2019-01-10] MEDS ORDERED: morphine 10mg/ml inj. IV ONE (13:30)
--- NOTE | 2019-01-10 15:13 | NUR ---
Cameron trigger: Cameron 12; unstageable coccyx wound noted per WOC. Pt admit w/ increased confusion and dislodged nephrostomy tube per EMR. Hx dementia, metastatic CA to: colon, prostate, and melanoma. Pt failed SP BSS past 2 days and remains NPO w/ Na [address] d/w RN regarding IV DEX in order to provide some nutrition in addition to lowering Na per MD approval. Pt is in bilateral wrist restraints r/t confusion and combativeness per EMR. LBM documented 01/05 but unsure if true LBM. IF continues to fail SP BSS approaching 5 days would like benefit from NGTF given nutrition needs for wound healing. Will continue to monitor. Rec: 1. advance diet per MD/SP recs to regular 2. once PO; MVI for healing needs 3. once PO; monitor for ONS needs 4. routine bowel care 5. IF prolonged NPO expected greater than 5 days; consider NGTF given pt wound healing needs. IF NGTF Vital High Protein to meet wound healing needs given current wt Addendum: 01/10/19 at [address] Amended: Links added.
[2019-01-10 18:00] VITALS: BP 126/83
--- NOTE | 2019-01-10 18:55 | NUR ---
Patient report given to Paulina VERMA
--- NOTE | 2019-01-10 20:14 | NUR ---
called Marty notifying of elevated HR 114-130. pt unable to receive PO meds due to NPO status. no change in orders. no increase in heparin dose for lack of eloquis, but ordered RT for lung congestion. MD requsted to access day hospitalist to address medication issues b/c they are familiar with patient.
[2019-01-10] MEDS: temazepam 15mg capsule PO SCH (21:00)
[2019-01-10 22:00] VITALS: BP 130/69
[2019-01-11 02:00] VITALS: BP 107/79
[2019-01-11] MEDS: morphine 2 MG/ML inj. syringe IV PRN (02:28)
[2019-01-11] MEDS ORDERED: LOPERAMIDE 2 mg/10 ml oral solution UD NG PRN (03:15)
[2019-01-11 05:17] LABS: BASOPHILS # (AUTO) 0.1 X10'3 (0-0.2); BASOPHILS % (AUTO) 0.8 % (0-1); EOSINOPHILS # (AUTO) 0.2 X10'3 (0-0.9); EOSINOPHILS % (AUTO) 2.7 % (0-6); HEMATOCRIT 29.9 % (42.0-52.0); HEMOGLOBIN 9.5 g/dl (14.0-17.9); LYMPHOCYTES # (AUTO) 0.7 X10'3 (1.1-4.8); LYMPHOCYTES % (AUTO) 10.2 % (21-51); MEAN CORPUSCULAR HEMOGLOBIN 30.7 PG (27.0-31.0); MEAN CORPUSCULAR HGB CONC 31.9 g/dL (33.0-36.5); MEAN CORPUSCULAR VOLUME 96.3 FL (78-98); MEAN PLATELET VOLUME 8.2 FL (7.4-10.4); MONOCYTES # (AUTO) 0.7 X10'3 (0-0.9); MONOCYTES % (AUTO) 11.2 % (2-12); NEUTROPHILS # (AUTO) 4.9 X10'3 (1.8-7.7); NEUTROPHILS % (AUTO) 75.1 % (42-75); PLATELET COUNT 225 X10'3 (140-440); RED CELL DISTRIBUTION WIDTH 17.1 % (11.5-14.5); WHITE BLOOD COUNT 6.6 X10'3 (4.5-11.0)
[2019-01-11 05:29] LABS: ALBUMIN 2.2 G/DL (3.4-5.0); ANION GAP 14 (8-16); BLOOD UREA NITROGEN 78 MG/DL (7-18); BUN/CREATININE RATIO 19.9 (5.4-32.0); CALCIUM 9.1 MG/DL (8.5-10.1); CHLORIDE 118 MMOL/L (99-107); CREATININE 3.92 MG/DL (0.60-1.10); GLUCOSE 73 MG/DL (70-104); POTASSIUM 4.8 MMOL/L (3.5-5.1); SODIUM 154 MMOL/L (135-145); TOTAL CARBON DIOXIDE 22.4 MMOL/L (24-32); eGFR 15 ML/MIN
--- NOTE | 2019-01-11 05:32 | NUR ---
Yas [facility] [phone]
[2019-01-11 06:10] VITALS: BP 136/87
--- NOTE | 2019-01-11 06:40 | NUR ---
I have received patient report from Andre VERMA
--- NOTE | 2019-01-11 06:43 | NUR ---
reported to days. noted pt still pulling at lines. unable to work with physical therapy. turn q2 hours.
--- NOTE | 2019-01-11 06:45 | NUR ---
noted sodium level 154 and pt not getting normal meds.
[2019-01-11] MEDS: dextrose 5%-water 1,000 ML IV SCH ×2 (09:20→19:53)
[2019-01-11] MEDS: CefTRIAXone/D5W-Rocephin 1gm 50 ML IV SCH (09:20)
[2019-01-11] MEDS: heparin, porcine 5000 units/ml vial SQ SCH ×2 (09:20→21:29)
[2019-01-11 10:00] VITALS: BP 128/81
[2019-01-11] MEDS: LORazepam 2 mg/ml vial IV PRN (11:59)
[2019-01-11] MEDS ORDERED: acetaminophen 325mg tablet PO PRN (13:45)
[2019-01-11] MEDS ORDERED: LORazepam 2 mg/ml vial IV PRN (13:45)
[2019-01-11] MEDS ORDERED: morphine 10mg/0.5ml (conc. morphine) oral syringe PO PRN (13:45)
[2019-01-11] MEDS: morphine 10mg/ml inj. IV PRN ×2 (17:25→21:29)
--- NOTE | 2019-01-11 18:32 | NUR ---
Patient report given to Andre VERMA
[2019-01-12] MEDS: morphine 10mg/ml inj. IV PRN ×5 (01:58→23:51)
--- NOTE | 2019-01-12 03:00 | NUR ---
noted 20 second apnea after morphine. pt continues to pull at lines while sleeping. will continue to monitor. decreased IVF to 20ml for possible fluid overload.
[2019-01-12] MEDS: dextrose 5%-water 1,000 ML IV SCH ×2 (05:05→10:58)
--- NOTE | 2019-01-12 06:42 | NUR ---
caregiver Yas called family and reports that patient's wishes were for him to go home, not to go to [facility] worker's house. "Kobe is underage and cannot make these decisions. the daughter Silva Lara will be contacting you. her number is [phone]." Informed Yas that case management would be working on discharge today. reproted to day RN.
[2019-01-12 11:09] VITALS: BP 95/70
--- NOTE | 2019-01-12 18:26 | NUR ---
Problems reprioritized. Patient report given, questions answered & plan of care reviewed with LUCI AMBROSE.
[2019-01-14] MEDS ORDERED: VANCOMYCIN LEVEL IV ONE (01:30)
== END 2019-01-13 05:50 | disposition expired | DRG 871 ==
LOC: ER 20:14 → ED HOLD 23:06 → ORTHO 4S 01-09 00:29
PROVIDERS: ADMIT Hospitalist; ATTEND Internal Medicine
DX: A41.9 Sepsis, unspecified organism (principal); I63.9 Cerebral infarction, unspecified; E43 Unspecified severe protein-calorie malnutrition; G93.41 Metabolic encephalopathy; C79.31 Secondary malignant neoplasm of brain; N17.9 Acute kidney failure, unspecified; E87.0 Hyperosmolality and hypernatremia; N13.6 Pyonephrosis; F03.91 Unspecified dementia, unspecified severity, with behavioral disturbance; F05 Delirium due to known physiological condition; C61 Malignant neoplasm of prostate; E87.70 Fluid overload, unspecified; Z60.2 Problems related to living alone; D63.8 Anemia in other chronic diseases classified elsewhere; I12.9 Hypertensive chronic kidney disease with stage 1 through stage 4 chronic kidney disease, or unspecified chronic kidney disease; Z96.652 Presence of left artificial knee joint; G62.9 Polyneuropathy, unspecified; R31.9 Hematuria, unspecified; I48.91 Unspecified atrial fibrillation; N18.9 Chronic kidney disease, unspecified; Z51.5 Encounter for palliative care; Z66 Do not resuscitate; Z78.1 Physical restraint status; Z85.038 Personal history of other malignant neoplasm of large intestine; Z85.820 Personal history of malignant melanoma of skin; Z68.28 Body mass index [BMI] 28.0-28.9, adult; Z88.8 Allergy status to other drugs, medicaments and biological substances
CPT/HCPCS: 36415; 70450; 71045; 80048; 80053; 80061; 81001; 83605; 83735; 83880; 84145; 84484; 85025; 85610; 85730; 87040; 87081; 87088; 92508; 92616; 93005; 94640; 94760; 99285; G0378; J0696; J1644; J1940; J2060; J2270; J3370; J3490; J7050; J7070